=== PATIENT | female | born 1960 | race American Indian/Alaskan Native ===

== ENCOUNTER 2018-04-27 07:15 | Emergency (ER) | payer SELFPAY ==
[2018-04-27] MEDS ORDERED: NACL 0.9% 1000 ML 1,000 ML IV ONE (07:42)
[2018-04-27 08:23] LABS: Bilirubin,Urine NEG (Negative); Blood,Urine MOD (Negative); Calcium Oxalate Crystals,Urine 2+; Color,Urine Yellow (Yellow); Mucus,Urine 3+ /HPF
[2018-04-27 08:30] LABS: Basophils # (Auto) 0.1 K/mm3 (0.0-0.1); Basophils % (Auto) 0.8 % (0.0-1.8); Eosinophils # (Auto) 0.1 K/mm3 (0.0-0.4); Eosinophils % (Auto) 1.1 % (0.0-4.3); Hematocrit 45.2 % (30.3-42.9); Hemoglobin 15.5 gm/dl (10.1-14.3); Lymphocytes % (Auto) 35.4 % (13.4-35.0); Mean Corpuscular HGB Conc 34 % (30-34); Mean Corpuscular Hemoglobin 32 pg (28-32); Mean Corpuscular Volume 93 fl (79-97); Monocytes # (Auto) 0.5 K/mm3 (0.0-0.8); Monocytes % (Auto) 5.6 % (0.0-7.3); Platelet Count 401 K/mm3 (140-440); Red Blood Count 4.87 M/mm3 (3.65-5.03); Red Cell Distribution Width 13.9 % (13.2-15.2)
[2018-04-27 09:45] LABS: Alanine Aminotransferase 12 units/L (7-56); Albumin 4.7 g/dL (3.9-5); BUN/Creatinine Ratio 23; Blood Urea Nitrogen 14 mg/dL (7-17); Calcium 10.1 mg/dL (8.4-10.2); Hemolysis Index 80
--- NOTE | 2018-04-27 10:36 | Emergency Department Report ---
HPI - General Chief Complaint: Abdominal Pain Time Seen by Provider: 04/27/18 10:21 - HPI HPI: Room 29 The patient is a 57-year-old female presenting with a chief complaint of back pain and abdominal pain. The patient states her symptoms began 1.5 weeks ago with intermittent back pain. The patient states the past 2-3 days she has had intermittent back pain and lower abdominal pain described as sharp and dull in nature. The patient states 2 days ago she had one day of loose stool but denies ever having nausea or vomiting. Patient denies dysuria, fever or hematuria. The patient gives her pain is score of 8/10 Location: [See above] Duration: [See above] Quality: Sharp/dull Severity:8/10 Modifying factors: [see above] Context: [see above] Mode of transportation: The patient drove herself to the emergency department and there are no visitors present ED Past Medical Hx - Surgical History Past Surgical History?: No - Family History Family history: no significant - Social History Smoking Status: Current Some Day Smoker Substance Use Type: None (denies illicit drug use) - Medications Home Medications: Home Medications Medication Instructions Recorded Confirmed Last Taken Type Ibuprofen [Motrin] 600 mg PO Q8H PRN #20 tablet 04/12/18 Unknown Rx traMADol [Ultram] 50 mg PO Q6HR PRN #12 tablet 04/12/18 Unknown Rx HYDROcodone/ACETAMINOPHEN [[place] 1 - 2 each PO Q4-6H PRN #12 tablet 04/27/18 Unknown Rx 5-325 Tablet] Ibuprofen [Motrin 800 MG tab] 800 mg PO Q8HR PRN #20 tablet 04/27/18 Unknown Rx ED Review of Systems ROS: Stated complaint: SIDE /BACK PAIN Other details as noted in HPI Constitutional: denies: fever Eyes: denies: eye pain ENT: denies: throat pain Respiratory: no symptoms reported Cardiovascular: denies: chest pain Endocrine: no symptoms reported Gastrointestinal: abdominal pain, diarrhea. denies: nausea, vomiting Genitourinary: denies: dysuria Musculoskeletal: back pain Neurological: denies: headache Physical Exam - Physical Exam Vital Signs: Vital Signs 04/27/18 07:37 Temperature 98.6 F Pulse Rate 71 Respiratory 18 Rate Blood Pressure 131/82 Physical Exam: GENERAL: The patient is well-developed well-nourished female sitting in chair not appearing to be in acute distress. [] HEENT: Normocephalic. Atraumatic. Extraocular motions are intact. Patient has moist mucous membranes. NECK: Supple. Trachea midline CHEST/LUNGS: Clear to auscultation. There is no respiratory distress noted. HEART/CARDIOVASCULAR: Regular. There is no tachycardia. There is no gallop rub or murmur. ABDOMEN: Abdomen is soft, with mild discomfort to palpation in the right lower quadrant. Patient has normal bowel sounds. There is no abdominal distention. SKIN: There is no rash. There is no edema. There is no diaphoresis. NEURO: The patient is awake, alert, and oriented. The patient is cooperative. The patient has normal speech MUSCULOSKELETAL: There is mild right CVA tenderness. There is no evidence of acute injury. ED Course Vital Signs 04/27/18 07:37 Temperature 98.6 F Pulse Rate 71 Respiratory 18 Rate Blood Pressure 131/82 ED Medical Decision Making - Lab Data Result diagrams: 04/27/18 07:55 04/27/18 09:10 Laboratory Tests 04/27/18 04/27/18 04/27/18 07:55 08:03 09:10 WBC 8.6 RBC 4.87 Hgb 15.5 H Hct 45.2 H MCV 93 MCH 32 MCHC 34 RDW 13.9 Plt Count 401 Lymph % (Auto) 35.4 H [place] % (Auto) 5.6 Eos % (Auto) 1.1 Baso % (Auto) 0.8 Lymph # 3.0 [place] # 0.5 Eos # 0.1 Baso # 0.1 Seg Neutrophils % 57.1 Seg Neutrophils # 4.9 Sodium 139 Potassium 4.6 Chloride 102.9 Carbon Dioxide 24 Anion Gap 17 BUN 14 Creatinine 0.6 L Estimated GFR > 60 BUN/Creatinine Ratio 23 Glucose 96 Calcium 10.1 Total Bilirubin 0.30 AST 21 ALT 12 Alkaline Phosphatase 79 Total Protein 7.9 Albumin 4.7 Albumin/Globulin Ratio 1.5 Lipase Urine Color Yellow Urine Turbidity Slightly-cloudy Urine pH 5.0 Ur Specific [place] 1.026 Urine Protein 30 mg/dl Urine Glucose (UA) Neg Urine Ketones Neg Urine Blood Mod Urine Nitrite Neg Urine Bilirubin Neg Urine Urobilinogen 2.0 Ur Leukocyte Esterase Neg Urine WBC (Auto) 1.0 Urine RBC (Auto) 9.0 U Epithel Cells (Auto) 1.0 Calcium Oxalate Crystal 2+ Urine Mucus 3+ 04/27/18 09:10 WBC RBC Hgb Hct MCV MCH MCHC RDW Plt Count Lymph % (Auto) [place] % (Auto) Eos % (Auto) Baso % (Auto) Lymph # [place] # Eos # Baso # Seg Neutrophils % Seg Neutrophils # Sodium Potassium Chloride Carbon Dioxide Anion Gap BUN Creatinine Estimated GFR BUN/Creatinine Ratio Glucose Calcium Total Bilirubin AST ALT Alkaline Phosphatase Total Protein Albumin Albumin/Globulin Ratio Lipase 24 Urine Color Urine Turbidity Urine pH Ur Specific [place] Urine Protein Urine Glucose (UA) Urine Ketones Urine Blood Urine Nitrite Urine Bilirubin Urine Urobilinogen Ur Leukocyte Esterase Urine WBC (Auto) Urine RBC (Auto) U Epithel Cells (Auto) Calcium Oxalate Crystal Urine Mucus - Radiology Data Radiology results: report reviewed (CT abdomen and pelvis), image reviewed (CT abdomen and pelvis) Findings [address] [address] Cat Scan Report Signed Patient: VICKY GARCIA MR#: [id number] : 1959 Acct:[id number] Age/Sex: 57 / F ADM Date: 04/27/18 Loc: ED Attending Dr: Ordering Physician: KEVIN LORENZANA MD Date of Service: 04/27/18 Procedure( s): CT abdomen pelvis w con Accession Number(s): [id number] cc: KEVIN LORENZANA MD FINAL REPORT EXAM: CT ABDOMEN PELVIS W CON HISTORY: ABD PAIN TECHNIQUE: CT of the abdomen and pelvis was performed after the administration of intravenous contrast. Subsequently, CT of the abdomen and pelvis was performed in the delayed phase. Reconstructions were included in the coronal and sagittal planes. PRIORS: None. FINDINGS: Lower thorax: The lung bases are clear. The visualized portions of the heart are normal. Liver: The liver is normal in attenuation. No intrahepatic biliary duct dilation. No focal hepatic lesions. There is focal fat adjacent to the fissure for ligamentum teres. Gallbladder/ biliary system: No cholelithiasis. The common bile duct appears nondilated. Spleen: No splenic lesions are seen. Pancreas: No pancreatic lesions are seen. No pancreatic duct dilation. Kidneys: Tiny low-attenuation lesions are seen bilaterally which are too small to characterize but likely represent small cysts. No hydronephrosis. Adrenal glands: No adrenal masses. Vasculature: The abdominal and pelvic vasculature is patent without variant anatomy. Lymph nodes : No enlarged lymph nodes are seen in the abdomen or pelvis. Bowel, mesentery, peritoneum: No bowel obstruction. No free fluid or free air. The appendix is normal. Colonic diverticulosis is seen. No diverticulitis. No bowel wall thickening. Urinary bladder: No filling defects are seen. Pelvis: Calcified uterine fibroids are seen. Abdominal wall: No abdominal wall hernia or other subcutaneous findings. Bones: Degenerative changes are seen in the spine. IMPRESSION: 1. Calcifying uterine fibroids. 2. Colonic diverticulosis without diverticulitis. 3. Small probable simple renal cysts. Transcribed By: MG Dictated By: DELANO BUNN MD Electronically Authenticated By: DELANO BUNN MD Signed Date/Time: 04/27/181128 DD/ 28 TD/TT: 04/27/181128 - Differential Diagnosis renal colic, enteritis, pyelonephritis, appendicitis Critical care attestation.: If time is entered above; I have spent that time in minutes in the direct care of this critically ill patient, excluding procedure time. ED Disposition Clinical Impression: Acute abdominal pain, Uterine fibroid, Proteinuria Disposition: - TO HOME OR SELFCARE Is pt being admited?: No Does the pt Need Aspirin: No Condition: Stable Instructions: Abdominal Pain (ED) Additional Instructions: Return to the emergency department immediately should you develop worsening symptoms, fever, inability to tolerate food or liquid or any other concerns. 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 Please follow up with him for further evaluation of your proteinuria (protein found in your urine)) AUDRA RIVAS MD [Staff Physician] - 3-5 Days (Dr. Rivas is a rural carrier. Please follow up with him for further evaluation of your abdominal pain) Time of Disposition: 11:43
--- NOTE | 2018-04-27 11:29 | Cat Scan Report ---
FINAL REPORT EXAM: CT ABDOMEN PELVIS W CON HISTORY: ABD PAIN TECHNIQUE: CT of the abdomen and pelvis was performed after the administration of intravenous contrast. Subsequently, CT of the abdomen and pelvis was performed in the delayed phase. Reconstructions were included in the coronal and sagittal planes. PRIORS: None. FINDINGS: Lower thorax: The lung bases are clear. The visualized portions of the heart are normal. Liver: The liver is normal in attenuation. No intrahepatic biliary duct dilation. No focal hepatic lesions. There is focal fat adjacent to the fissure for ligamentum teres. Gallbladder/ biliary system: No cholelithiasis. The common bile duct appears nondilated. Spleen: No splenic lesions are seen. Pancreas: No pancreatic lesions are seen. No pancreatic duct dilation. Kidneys: Tiny low-attenuation lesions are seen bilaterally which are too small to characterize but likely represent small cysts. No hydronephrosis. Adrenal glands: No adrenal masses. Vasculature: The abdominal and pelvic vasculature is patent without variant anatomy. Lymph nodes: No enlarged lymph nodes are seen in the abdomen or pelvis. Bowel, mesentery, peritoneum: No bowel obstruction. No free fluid or free air. The appendix is normal. Colonic diverticulosis is seen. No diverticulitis. No bowel wall thickening. Urinary bladder: No filling defects are seen. Pelvis: Calcified uterine fibroids are seen. Abdominal wall: No abdominal wall hernia or other subcutaneous findings. Bones: Degenerative changes are seen in the spine. IMPRESSION: 1. Calcifying uterine fibroids. 2. Colonic diverticulosis without diverticulitis. 3. Small probable simple renal cysts.
[2018-04-27] MEDS ORDERED: TORADOL IV ONE (11:38)
[2018-04-27 12:09] VITALS: BP 136/76
== END 2018-04-27 12:07 | disposition home or self-care (01) ==
LOC: ED 07:15
DX: D25.9 Leiomyoma of uterus, unspecified (principal); R80.9 Proteinuria, unspecified; F17.200 Nicotine dependence, unspecified, uncomplicated
CPT/HCPCS: 36415; 74177; 80053; 81001; 83690; 85025; 96374; 99284; J1885; Q9967

== ENCOUNTER 2018-04-30 14:28 | Emergency (ER) | payer SELFPAY ==
[2018-04-30] MEDS ORDERED: ASPIRIN PO ONE (15:02)
[2018-04-30 16:41] LABS: Basophils # (Auto) 0.1 K/mm3 (0.0-0.1); Basophils % (Auto) 1.6 % (0.0-1.8); Eosinophils # (Auto) 0.1 K/mm3 (0.0-0.4); Eosinophils % (Auto) 0.7 % (0.0-4.3); Hematocrit 41.7 % (30.3-42.9); Hemoglobin 14.8 gm/dl (10.1-14.3); Lymphocytes # (Auto) 3.6 K/mm3 (1.2-5.4); Lymphocytes % (Auto) 44.6 % (13.4-35.0); Mean Corpuscular HGB Conc 35 % (30-34); Mean Corpuscular Hemoglobin 32 pg (28-32); Mean Corpuscular Volume 91 fl (79-97); Monocytes # (Auto) 0.4 K/mm3 (0.0-0.8); Monocytes % (Auto) 4.4 % (0.0-7.3); Platelet Count 331 K/mm3 (140-440); Red Blood Count 4.56 M/mm3 (3.65-5.03)
[2018-04-30 16:42] LABS: BUN/Creatinine Ratio 10; Blood Urea Nitrogen 6 mg/dL (7-17); Calcium 9.6 mg/dL (8.4-10.2); Hemolysis Index 11
[2018-04-30 17:53] VITALS: BP 142/90
--- NOTE | 2018-04-30 17:54 | Emergency Department Report ---
ED Back Pain/Injury HPI - General Chief Complaint: Chest Pain Stated Complaint: SOB/MOUTH PAIN Time Seen by Provider: 04/30/18 17:26 Source: patient Limitations: No Limitations - History of Present Illness Initial Comments: Ms. Chery is a healthy 57 yo female with hx of GERD and lumbar DDD presents with bilateral lower back for one week. Dull pain. Has hx of proteinuria. No leg pain. No paresthesias. Has had 30 pound unintentional weight loss over several months. MD Complaint: back pain -: Gradual, week(s) (1) Radiation: abdomen Severity: moderate Consistency: constant Improves With: none Worsens With: none Associated Symptoms: other (weight loss) - Related Data Previous Rx's Medication Instructions Recorded Last Taken Type Ibuprofen [Motrin] 600 mg PO Q8H PRN #20 tablet 04/12/18 Unknown Rx traMADol [Ultram] 50 mg PO Q6HR PRN #12 tablet 04/12/18 Unknown Rx HYDROcodone/ACETAMINOPHEN [[place] 1 - 2 each PO Q4-6H PRN #12 tablet 04/27/18 Unknown Rx 5-325 Tablet] Ibuprofen [Motrin 800 MG tab] 800 mg PO Q8HR PRN #20 tablet 04/27/18 Unknown Rx Allergies Allergy/AdvReac Type Severity Reaction Status Date / Time No Known Allergies Allergy Verified 04/27/18 11:35 ED Review of Systems ROS: Stated complaint: SOB/MOUTH PAIN Other details as noted in HPI Comment: All other systems reviewed and negative Respiratory: denies: cough Cardiovascular: denies: chest pain ED Past Medical Hx - Past Medical History Hx GERD: Yes - Surgical History Past Surgical History?: No - Social History Smoking Status: Current Every Day Smoker Substance Use Type: None - Medications Home Medications: Home Medications Medication Instructions Recorded Confirmed Last Taken Type Ibuprofen [Motrin] 600 mg PO Q8H PRN #20 tablet 04/12/18 Unknown Rx traMADol [Ultram] 50 mg PO Q6HR PRN #12 tablet 04/12/18 Unknown Rx HYDROcodone/ACETAMINOPHEN [[place] 1 - 2 each PO Q4-6H PRN #12 tablet 04/27/18 Unknown Rx 5-325 Tablet] Ibuprofen [Motrin 800 MG tab] 800 mg PO Q8HR PRN #20 tablet 04/27/18 Unknown Rx ED Physical Exam - General Limitations: No Limitations General appearance: alert, in no apparent distress - Head Head exam: Present: atraumatic, normocephalic - Eye Eye exam: Present: normal appearance - ENT ENT exam: Present: mucous membranes moist - Neck Neck exam: Present: normal inspection - Respiratory Respiratory exam: Present: normal lung sounds bilaterally. Absent: respiratory distress, wheezes, rales, rhonchi - Cardiovascular Cardiovascular Exam: Present: regular rate, normal rhythm, normal heart sounds. Absent: systolic murmur, diastolic murmur, rubs, gallop - GI/Abdominal GI/Abdominal exam: Present: soft, normal bowel sounds. Absent: distended, tenderness, guarding, rebound - Extremities Exam Extremities exam: Present: normal inspection - Back Exam Back exam: Present: normal inspection - Neurological Exam Neurological exam: Present: alert, oriented X3 - Psychiatric Psychiatric exam: Present: normal affect, normal mood - Skin Skin exam: Present: warm, dry, intact, normal color. Absent: rash ED Course Vital Signs 04/30/18 14:55 Temperature 98.3 F Pulse Rate 85 Respiratory 16 Rate Blood Pressure 153/98 O2 Sat by Pulse 100 Oximetry ED Medical Decision Making - Lab Data Result diagrams: 04/30/18 15:11 04/30/18 15:11 - EKG Data -: EKG Interpreted by Me EKG shows normal: sinus rhythm, axis, intervals, QRS complexes, ST-T waves Rate: normal - Medical Decision Making Ms. Chery is healthy 57 yo female with bilateral lower back pain. I reviewed CT scan obtained 3 days ago which revealed uterine fibroids. Do not suspect emergent cause, differential diagnosis includes lumbar degenerative disc disease , lower lumbar strain. Patient also has had weight loss. She's been under a lot of stress since his separation from her . She plans to return to [facility] to be close to her family. She also will obtain primary care in [place] for further evaluation of weight loss. I Have noted that she has been to our ED 3 times in 2 weeks. Noted depression without SI. She has a safe place to stay. Critical care attestation.: If time is entered above; I have spent that time in minutes in the direct care of this critically ill patient, excluding procedure time. ED Disposition Clinical Impression: Back pain Disposition: - TO HOME OR SELFCARE Is pt being admited?: No Does the pt Need Aspirin: No Condition: Stable Instructions: Flank Pain (ED) Referrals: [facility] [Outside] - 3-5 Days Time of Disposition: 17:46
== END 2018-04-30 17:51 | disposition home or self-care (01) ==
LOC: ED 14:28
DX: M54.5 Low back pain (principal); K21.9 Gastro-esophageal reflux disease without esophagitis; F17.200 Nicotine dependence, unspecified, uncomplicated
CPT/HCPCS: 36415; 80048; 82962; 84484; 85025; 93005; 93010; 99284

== ENCOUNTER 2018-05-03 08:21 | Emergency (ER) | payer SELFPAY ==
[2018-05-03 08:32] VITALS: BP 151/108
--- NOTE | 2018-05-03 09:29 | Emergency Department Report ---
ED General Adult HPI - General Chief complaint: Nausea/Vomiting/Diarrhea Stated complaint: CONGESTION/DIARRHEA Time Seen by Provider: 05/03/18 09:18 Source: patient Mode of arrival: Ambulatory Limitations: No Limitations - History of Present Illness Initial comments: Ms. Chery is a 57 yo female who presents with nasal congestion and diarrhea for 2 days. No pain. No fever. -: Gradual, days(s) (2) Worsens with: none Associated Symptoms: denies other symptoms - Related Data Previous Rx's Medication Instructions Recorded Last Taken Type Ibuprofen [Motrin] 600 mg PO Q8H PRN #20 tablet 04/12/18 Unknown Rx traMADol [Ultram] 50 mg PO Q6HR PRN #12 tablet 04/12/18 Unknown Rx HYDROcodone/ACETAMINOPHEN [[place] 1 - 2 each PO Q4-6H PRN #12 tablet 04/27/18 Unknown Rx 5-325 Tablet] Ibuprofen [Motrin 800 MG tab] 800 mg PO Q8HR PRN #20 tablet 04/27/18 Unknown Rx Allergies Allergy/AdvReac Type Severity Reaction Status Date / Time No Known Allergies Allergy Verified 04/27/18 11:35 ED Review of Systems ROS: Stated complaint: CONGESTION/DIARRHEA Other details as noted in HPI Constitutional: malaise. denies: fever ENT: denies: ear pain Respiratory: denies: cough Cardiovascular: denies: chest pain Gastrointestinal: denies: abdominal pain ED Past Medical Hx - Past Medical History Previous Medical History?: Yes Hx GERD: Yes - Surgical History Past Surgical History?: No - Social History Smoking Status: Current Every Day Smoker Substance Use Type: None - Medications Home Medications: Home Medications Medication Instructions Recorded Confirmed Last Taken Type Ibuprofen [Motrin] 600 mg PO Q8H PRN #20 tablet 04/12/18 Unknown Rx traMADol [Ultram] 50 mg PO Q6HR PRN #12 tablet 04/12/18 Unknown Rx HYDROcodone/ACETAMINOPHEN [[place] 1 - 2 each PO Q4-6H PRN #12 tablet 04/27/18 Unknown Rx 5-325 Tablet] Ibuprofen [Motrin 800 MG tab] 800 mg PO Q8HR PRN #20 tablet 04/27/18 Unknown Rx ED Physical Exam - General Limitations: No Limitations General appearance: alert, in no apparent distress - Head Head exam: Present: atraumatic, normocephalic - ENT ENT exam: Present: mucous membranes moist - Neck Neck exam: Present: normal inspection. Absent: tenderness, meningismus - Respiratory Respiratory exam: Absent: respiratory distress - Neurological Exam Neurological exam: Present: alert, oriented X3 - Psychiatric Psychiatric exam: Present: normal affect, normal mood ED Course Vital Signs 05/03/18 08:29 Temperature 98.9 F Pulse Rate 83 Respiratory 16 Rate Blood Pressure 151/108 O2 Sat by Pulse 100 Oximetry ED Medical Decision Making - Medical Decision Making Ms. Chery is a healthy female with minor symptoms. I evaluated her 3 days ago. She does appear to have depression and anxiety according to my evaluation. She denies SI. After a court hearing, she will return to her [employer] [employer] [place] in [place], [place]. Critical care attestation.: If time is entered above; I have spent that time in minutes in the direct care of this critically ill patient, excluding procedure time. ED Disposition Clinical Impression: URI (upper respiratory infection), Diarrhea Disposition: DC-01 TO HOME OR SELFCARE Is pt being admited?: No Does the pt Need Aspirin: No Condition: Stable Instructions: Upper Respiratory Infection (ED), Loperamide (By mouth), Acute Diarrhea (ED) Referrals: [facility] [Outside] - 3-5 Days
== END 2018-05-03 09:38 | disposition home or self-care (01) ==
LOC: ED 08:21
DX: J06.9 Acute upper respiratory infection, unspecified (principal); R19.7 Diarrhea, unspecified; K21.9 Gastro-esophageal reflux disease without esophagitis; F17.200 Nicotine dependence, unspecified, uncomplicated
CPT/HCPCS: 82962; 99282